=== PATIENT | female | born 1990 | race Caucasian/White ===

== ENCOUNTER → 2016-10-18 | Outpatient (REF) | payer OTHER | LOC: M LAB REF 13:04 | PROVIDERS: ATTEND Obstetrics & Gynecology | DX: Z34.83 Encounter for supervision of other normal pregnancy, third trimester (principal) ==

== ENCOUNTER 2016-11-10 11:02 | Inpatient (IN) | payer OTHER ==
[2016-11-10] VITALS (22 sets, daily range): BP systolic 68–138; BP diastolic 47–82
[~2016-11-10] VITALS: Ht 154.9 cm; Wt 68.6 kg
[2016-11-10] MEDS ORDERED: LR 1,000 ML IV SCH (11:11)
[2016-11-10] MEDS ORDERED: FOLI800C PO (11:15)
[2016-11-10] MEDS ORDERED: PRENTAB9 PO (11:15)
[2016-11-10] MEDS ORDERED: OXYTOCIN DRIP 30 UNITS in APPROPRIATE DILUENT 1 EA IV SCH ×2 (11:15→18:00)
[2016-11-10] MEDS ORDERED: ZYRT10CA PO (11:15)
[2016-11-10] MEDS ORDERED: SING5CHW23 PO (11:34)
[2016-11-10] MEDS ORDERED: LAMO100T PO (11:34)
[2016-11-10 12:17] LABS: MEAN CORPUSCULAR HEMOGLOBIN 29.5 pg (27.0-33.0); MEAN CORPUSCULAR HGB CONC 33.5 g/dl (32.0-36.5); MEAN CORPUSCULAR VOLUME 88.1 fl (80.0-96.0); RED CELL DISTRIBUTION WIDTH 13.3 % (11.5-14.5); WHITE BLOOD COUNT 11.6 K/mm3 (4.0-10.0)
--- NOTE | 2016-11-10 13:38 | HPE ---
DATE OF ADMISSION: 11/10/2016 Geoffrey is a 26-year-old 2, para 1-0-0-1. She is at 38 and 6/7s weeks gestation with an EDC of 11/18/2016 based on first trimester ultrasound. She presents to labor and delivery today after evaluation in the office for complaint of spontaneous rupture of membranes at approximately 0730. She does describe the fluid as clear and nonodorous and did start carlos at approximately 10:15. She has continued to leak fluid. The fetus has been active. care initiated at [facility] as a transfer in from [facility] at 22 weeks gestation. Her course has been complicated by a persistent pericardial effusion. She was seen at the center and noted to have no structural heart anomalies. No evidence of hydrops. The plan is for pediatrics to be notified upon labor admission for this. The patient also has a history of an arteriovenous malformation (AVM) diagnosed in 2012, status post neural surgery. She was seen by neural surgery and they did recommend a spontaneous vaginal delivery for her mode of delivery. She has epilepsy with her most recent seizure being at 8 weeks gestation in this and she does take Lamictal 50 mg daily. She is well controlled with Lamictal. She does have a history of nephrolithiasis as well. OB HISTORY: In January of 2012 at 41 weeks gestation, she had a spontaneous vaginal delivery for a 7 pound male. OB LABS: O negative, antibody screen negative, pap normal, varicella reactive, rubella immune, VDRL non-reactive, urine culture no growth, HBsAG negative, HIV negative Hep C antibody non-reactive,GC/CT negative, GDS 84, GBS negaitve. PAST MEDICAL HISTORY: Epilepsy. Stroke. Arteriovenous malformation. Depression. Childhood varicella. Allergies. PAST SURGICAL HISTORY: Mirena surgically removed in October of 2015. Brain surgery 2012. Kidney stone removal 2011. FAMILY HISTORY: Noncontributory. 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 She was a prior smoker and quit with her . Denies alcohol use. Remote history of illicit drug use including cocaine, Ecstasy and marijuana as a teen. She has a history of Chlamydia in 2014 and she does deny history of abuse, physical sexual and emotional. ALLERGIES: No known drug allergies. CURRENT MEDICATIONS: - Lamictal 50 mg - Zyrtec 10 mg - Folic acid 0.4 mg - Singular 10 mg OBJECTIVE: Temperature 198, pulse 104, respirations 15, blood pressure 121/74. heart rate is 140 with moderate variability, positive accelerations, no decelerations. She is carlos moderately about every 2 to 4 minutes. Her abdomen is gravid. Cephalic presentation. Estimated weight at approximately 7-1/2 pounds. Assessment performed in the office was grossly ruptured, positive Nitrazine, positive ferning, clear fluid. Sterile vaginal exam: 2 cm dilated. 75% effaced. -3 station. ASSESSMENT: Intrauterine at 38 and 6/7s week gestation. heart rate category 1, premature rupture of membranes. PLAN: Per consult with Dr. Flip Rashid, admit patient to labor and delivery. Augment her labor with IV Pitocin. Encourage passive descent as the patient does desire an epidural when she is in active labor. Labs. Out of ad. Susana. Clear liquid diet. I do anticipate labor and a spontaneous vaginal delivery. MTDD
[2016-11-10] MEDS ORDERED: FENTANYL 2MCG/ML ROPIVACAINE 0.2% NACL 250 ML CADD As Ordered ONE (14:57)
[2016-11-10] MEDS ORDERED: NALOXONE INJ 0.4 MG/1 ML VIAL (J2310) IV PRN (16:30)
[2016-11-10] MEDS ORDERED: ONDANSETRON 4MG/2ML VIAL (J2405) IV PRN (16:30)
[2016-11-10] MEDS ORDERED: diphenhydrAMINE INJ 50MG/ML VIAL (J1200) IV PRN (16:30)
[2016-11-10] MEDS ORDERED: FENTANYL/ROPIVACAINE/NACL CADD 250 ML EPIDURAL SCH (16:30)
[2016-11-10] MEDS ORDERED: REFRIGERATOR IV KEYS XX PRN (16:30)
[2016-11-10] MEDS ORDERED: ePHEDrine SULFATE 25 MG/5 ML(5MG/ML) SYRINGE IV PRN (16:30)
[2016-11-10] MEDS ORDERED: EPIDURAL COMMENT XX SCH (16:30)
[2016-11-10] MEDS ORDERED: EPIDURAL/PCA KEYS XX PRN (16:30)
[2016-11-10] MEDS ORDERED: LACTATED RINGER'S 1000 ML IV PRN (16:30)
[2016-11-10] MEDS ORDERED: DOCUSATE SODIUM 100 MG CAP PO PRN (18:00)
[2016-11-10] MEDS ORDERED: METHYLERGONOVINE MALEATE 0.2 MG TAB PO PRN (18:00)
[2016-11-10] MEDS ORDERED: RHOGAM 300 MCG (1500 IU) INJ (J2790) IM SCH (18:00)
[2016-11-10] MEDS ORDERED: DIBUCAINE 1% OINTMENT 30GM TOP PRN (18:00)
[2016-11-10] MEDS ORDERED: MEASLES,MUMPS,RUBELLA VACCINE INJ (MMR-II) (90707) SC SCH (18:00)
[2016-11-10] MEDS ORDERED: IBUPROFEN 800 MG TAB PO PRN (18:00)
--- NOTE | 2016-11-10 18:06 | DN ---
DATE: 11/10/2016 Fiona is a 26-year-old 2, para 2-0-0-2 now who was admitted to labor and delivery with spontaneous rupture of membranes. IV Pitocin was started and labor did ensue. She did utilize an epidural for her labor coping. She progressed to full dilation at 1727 hours. She pushed to a normal spontaneous vaginal delivery of a live female infant in occiput anterior (OA) position with restitution to left occiput transverse (LOT) position at 1734 hours. There was no nuchal cord. The shoulders delivered spontaneously and the corpus immediately followed. The was placed on maternal abdomen, crying and active. Her mouth and nares were bulb suctioned. The cord was clamped times two once pulsations ceased and was cut by the father of the baby. A spontaneous expulsion of an intact placenta with three-vessel cord by Gabriel mechanism was at 1740 hours. Uterine hemostasis achieved with IV Pitocin rapid infusion and uterine fundal massage. Estimated blood loss 300 mL. Perineum and vagina inspected, noted to have bilateral periurethral lacerations. One interrupted suture was placed in the right periurethral laceration. [place] female weighed 7 pounds 14 ounces, 3580 grams, scores 9 and 9. Mom plans to breastfeed her daughter and the family have named her Amarilys. At the close of delivery, instrument count, lap count and needle count were correct and verified.
[2016-11-11] MEDS: ACETAMINOPHEN 500 MG TAB PO PRN ×2 (05:47→19:42)
[2016-11-11 06:03] VITALS: BP 137/94
[2016-11-11] MEDS: PRENATAL VITAMIN TAB PO SCH (08:10)
[2016-11-11 18:08] VITALS: BP 131/82
[2016-11-12] MEDS: ACETAMINOPHEN 500 MG TAB PO PRN (04:03)
[2016-11-12 06:21] VITALS: BP 132/83
[2016-11-12] MEDS ORDERED: ADACEL/BOOSTRIX VACCINE (DIPHTH/PERTUSS/ACELL/TETANUS)0.5ML SYR (90715) IM ONE (09:00)
[2016-11-12] MEDS ORDERED: IBUP-1114 PO (09:01)
[2016-11-12] MEDS ORDERED: ACET50TA PO (09:01)
[2016-11-12] MEDS: PRENATAL VITAMIN TAB PO SCH (09:22)
== END 2016-11-12 10:45 | disposition home or self-care (01) | DRG 775 ==
LOC: M LDI 11:02 → M OBS 20:22
PROVIDERS: ADMIT Advanced Practice Midwife; ATTEND Advanced Practice Midwife
PROC: 10E0XZZ Delivery of Products of Conception, External Approach (ICD-10-PCS; principal; 2016-11-10)
PROC: 0HQ9XZZ Repair Perineum Skin, External Approach (ICD-10-PCS; 2016-11-10)
DX: O42.02 Full-term premature rupture of membranes, onset of labor within 24 hours of rupture (principal); O99.354 Diseases of the nervous system complicating childbirth; Z37.0 Single live birth; Z3A.38 38 weeks gestation of pregnancy; G40.909 Epilepsy, unspecified, not intractable, without status epilepticus; O70.0 First degree perineal laceration during delivery

== ENCOUNTER → 2018-01-18 | Outpatient (REF) | payer OTHER ==
[2018-01-18 23:29] LABS: CHLAMYDIA DNA AMPLIFICATION NEGATIVE (NEGATIVE); GC DNA AMPLIFICATION NEGATIVE (NEGATIVE)
== END ==
LOC: M SFHCLERA 17:20
DX: R30.0 Dysuria (principal)

== ENCOUNTER 2018-01-22 14:27 | Observation (INO) | payer OTHER ==
[2018-01-22 15:04] LABS: BEDSIDE GLUCOSE 109 MG/DL (70-105)
[2018-01-22 15:27] LABS: BASO % 0.4 % (0.0-1.0); EOS # 0.2 10^3/uL (0.0-0.50); EOS % 1.5 % (0.0-3.0); HEMATOCRIT 40.1 % (36.0-47.0); HEMOGLOBIN 13.6 g/dl (12.0-15.5); IMMATURE GRANULOCYTE % 0.3 % (0-3.0); LYMPH # 2.5 10^3/uL (1.5-6.5); LYMPH % 24.8 % (24.0-44.0); MEAN CORPUSCULAR HEMOGLOBIN 29.6 pg (27.0-33.0); MEAN CORPUSCULAR HGB CONC 33.9 g/dl (32.0-36.5); MEAN CORPUSCULAR VOLUME 87.4 fl (80.0-96.0); MONO # 0.7 10^3/uL (0.0-0.8); MONO % 6.7 % (0.0-5.0); NEUTROPHILS # 6.7 10^3/uL (1.8-7.7); NEUTROPHILS % 66.3 % (36.0-66.0); PLATELET COUNT, AUTOMATED 227 10^3/uL (150-450); RED BLOOD COUNT 4.59 10^6/uL (4.00-5.40); RED CELL DISTRIBUTION WIDTH 12.1 % (11.5-14.5); WHITE BLOOD COUNT 10.2 10^3/uL (4.0-10.0)
[2018-01-22 15:28] LABS: VENOUS BASE EXCESS -1.5 (-2.0-2.0); VENOUS HCO3 24.6 MEQ/L (23.0-27.0); VENOUS O2 SATURATION 86.5 % (60.0-80.0); VENOUS PARTIAL PRESSURE CO2 46.5 mmHg (38.0-50.0); VENOUS PARTIAL PRESSURE O2 52.7 mmHg (30.0-50.0); VENOUS PH 7.341 UNITS (7.330-7.430)
[2018-01-22 15:43] LABS: CONTROL LINE HCG INT CTR LINE PRESENT; HCG, SERUM QUALITATIVE NEGATIVE (NEGATIVE)
[2018-01-22 15:45] LABS: OSMOLALITY SERUM 290 MOSM/KG (275-295)
[2018-01-22 16:05] LABS: ACETAMINOPHEN LEVEL < 2.0 UG/ML (10.0-30.0); ALBUMIN/GLOBULIN RATIO 1.21 (1.00-1.93); ALKALINE PHOSPHATASE 74 U/L (45-117); ALT/SGPT 29 U/L (12-78); ANION GAP 7 MEQ/L (8-16); AST/SGOT 16 U/L (7-37); BILIRUBIN,DIRECT < 0.1 MG/DL (0.0-0.2); BILIRUBIN,TOTAL 0.3 MG/DL (0.2-1.0); BLOOD UREA NITROGEN 13 MG/DL (7-18); CALCIUM LEVEL 8.4 MG/DL (8.5-10.1); CARBON DIOXIDE LEVEL 27 MEQ/L (21-32); CHLORIDE LEVEL 108 MEQ/L (98-107); CPK CREATINE PHOSPHOKINASE 133 U/L (26-192); CREATININE FOR GFR 0.64 MG/DL (0.55-1.30); ETHYL ALCOHOL (ETHANOL) < 0.003 % (0.000-0.010); GLOMERULAR FILTRATION RATE > 60.0 (>60); GLUCOSE, FASTING 93 MG/DL (70-100); POTASSIUM SERUM 3.6 MEQ/L (3.5-5.1); SALICYLATE LEVEL < 1.7 MG/DL (5.0-30.0); SODIUM LEVEL 142 MEQ/L (136-145); TOTAL PROTEIN 7.3 GM/DL (6.4-8.2)
[2018-01-22] MEDS: LORazepam 2 MG/ML VIAL (J2060) IV ×2 (16:22)
[2018-01-22] MEDS ORDERED: LORazepam 2 MG/ML VIAL (J2060) IV ×2 (21:30)
[2018-01-22] MEDS: lamoTRIgine 25 MG TAB PO ×2 (22:07)
[2018-01-23] MEDS: ACETAMINOPHEN TAB 650MG DOSE (2X325MG) PO ×4 (06:45→17:00)
[2018-01-23] MEDS: HEPARIN SOD (PORCINE) 5000 UNITS/ML VIAL SC ×6 (06:45→20:03)
[2018-01-23 06:53] LABS: HEMOGLOBIN 13.5 g/dl (12.0-15.5); MEAN CORPUSCULAR HEMOGLOBIN 29.5 pg (27.0-33.0); MEAN CORPUSCULAR HGB CONC 33.8 g/dl (32.0-36.5); MEAN CORPUSCULAR VOLUME 87.3 fl (80.0-96.0); PLATELET COUNT, AUTOMATED 226 10^3/uL (150-450); RED BLOOD COUNT 4.58 10^6/uL (4.00-5.40); RED CELL DISTRIBUTION WIDTH 12.3 % (11.5-14.5); WHITE BLOOD COUNT 7.8 10^3/uL (4.0-10.0)
[2018-01-23 07:09] LABS: ANION GAP 2 MEQ/L (8-16); BLOOD UREA NITROGEN 15 MG/DL (7-18); CALCIUM LEVEL 8.5 MG/DL (8.5-10.1); CARBON DIOXIDE LEVEL 28 MEQ/L (21-32); CHLORIDE LEVEL 113 MEQ/L (98-107); CREATININE FOR GFR 0.72 MG/DL (0.55-1.30); GLOMERULAR FILTRATION RATE > 60.0 (>60); GLUCOSE, FASTING 89 MG/DL (70-100); POTASSIUM SERUM 3.9 MEQ/L (3.5-5.1); SODIUM LEVEL 143 MEQ/L (136-145)
[2018-01-23] MEDS: lamoTRIgine 25 MG TAB PO ×2 (07:42)
[2018-01-23] MEDS: ONDANSETRON 4MG/2ML VIAL (J2405) IV ×2 (12:38)
[2018-01-23] MEDS: KETOROLAC 30 MG/ML VIAL (J1885) IV ×2 (12:39)
[2018-01-23] MEDS: AMITRIPTYLINE 10 MG TAB PO ×2 (19:59)
[2018-01-23] MEDS: lamoTRIgine 100MG TAB PO ×2 (20:00)
[2018-01-24] MEDS: HEPARIN SOD (PORCINE) 5000 UNITS/ML VIAL SC ×2 (05:47)
[2018-01-24 07:30] LABS: HEMATOCRIT 38.4 % (36.0-47.0); HEMOGLOBIN 12.6 g/dl (12.0-15.5); MEAN CORPUSCULAR HEMOGLOBIN 29.7 pg (27.0-33.0); MEAN CORPUSCULAR HGB CONC 32.8 g/dl (32.0-36.5); MEAN CORPUSCULAR VOLUME 90.6 fl (80.0-96.0); PLATELET COUNT, AUTOMATED 194 10^3/uL (150-450); RED BLOOD COUNT 4.24 10^6/uL (4.00-5.40); RED CELL DISTRIBUTION WIDTH 12.4 % (11.5-14.5); WHITE BLOOD COUNT 7.6 10^3/uL (4.0-10.0)
[2018-01-24 07:55] LABS: ANION GAP 6 MEQ/L (8-16); BLOOD UREA NITROGEN 13 MG/DL (7-18); CALCIUM LEVEL 8.2 MG/DL (8.5-10.1); CARBON DIOXIDE LEVEL 26 MEQ/L (21-32); CHLORIDE LEVEL 113 MEQ/L (98-107); CREATININE FOR GFR 0.87 MG/DL (0.55-1.30); GLOMERULAR FILTRATION RATE > 60.0 (>60); GLUCOSE, FASTING 84 MG/DL (70-100); POTASSIUM SERUM 4.1 MEQ/L (3.5-5.1); SODIUM LEVEL 145 MEQ/L (136-145)
[2018-01-24] MEDS: lamoTRIgine 100MG TAB PO ×2 (08:27)
[2018-01-24] MEDS ORDERED: lamoTRIgine 25 MG TAB PO ×2 (09:00)
[2018-01-24] MEDS: CALCIUM GLUCONATE 1,000 MG in D5W MINI-BAG PLUS 100 ML IV (09:20)
[2018-01-24] MEDS: KETOROLAC 30 MG/ML VIAL (J1885) IV ×2 (10:23)
[2018-01-25 14:19] LABS: LAMOTRIGINE (LAMICTAL) None Detected ug/mL (2.0-20.0)
== END 2018-01-24 11:15 | disposition home or self-care (01) ==
LOC: M PED 01-23 09:15 → M ED 14:27 → M ED INP 20:29
DX: G40.309 Generalized idiopathic epilepsy and epileptic syndromes, not intractable, without status epilepticus (principal); Z86.79 Personal history of other diseases of the circulatory system; Z91.19 Patient's noncompliance with other medical treatment and regimen; R41.82 Altered mental status, unspecified; G43.719 Chronic migraine without aura, intractable, without status migrainosus; G44.229 Chronic tension-type headache, not intractable; G47.00 Insomnia, unspecified; F41.9 Anxiety disorder, unspecified; F32.9 Major depressive disorder, single episode, unspecified; Z86.73 Personal history of transient ischemic attack (TIA), and cerebral infarction without residual deficits; G93.41 Metabolic encephalopathy; R20.0 Anesthesia of skin; Z86.19 Personal history of other infectious and parasitic diseases; Z79.899 Other long term (current) drug therapy; Z88.8 Allergy status to other drugs, medicaments and biological substances
CPT/HCPCS: J2405

== ENCOUNTER → 2018-02-07 | Outpatient (REF) | payer OTHER ==
[2018-02-07 12:55] LABS: BASO % 0.4 % (0.0-1.0); EOS # 0.1 10^3/uL (0.0-0.50); EOS % 1.6 % (0.0-3.0); HEMATOCRIT 41.4 % (36.0-47.0); IMMATURE GRANULOCYTE % 0.3 % (0-3.0); LYMPH # 2.1 10^3/uL (1.5-6.5); LYMPH % 30.1 % (24.0-44.0); MEAN CORPUSCULAR HEMOGLOBIN 29.7 pg (27.0-33.0); MEAN CORPUSCULAR HGB CONC 33.8 g/dl (32.0-36.5); MEAN CORPUSCULAR VOLUME 87.9 fl (80.0-96.0); MONO # 0.5 10^3/uL (0.0-0.8); MONO % 7.7 % (0.0-5.0); NEUTROPHILS # 4.1 10^3/uL (1.8-7.7); NEUTROPHILS % 59.9 % (36.0-66.0); PLATELET COUNT, AUTOMATED 208 10^3/uL (150-450); RED BLOOD COUNT 4.71 10^6/uL (4.00-5.40); RED CELL DISTRIBUTION WIDTH 11.9 % (11.5-14.5); WHITE BLOOD COUNT 6.9 10^3/uL (4.0-10.0)
[2018-02-07 13:43] LABS: ALBUMIN 4.1 GM/DL (3.2-5.2); ALBUMIN/GLOBULIN RATIO 1.14 (1.00-1.93); ALKALINE PHOSPHATASE 77 U/L (45-117); ALT/SGPT 23 U/L (12-78); ANION GAP 10 MEQ/L (8-16); AST/SGOT 15 U/L (7-37); BILIRUBIN,TOTAL 0.4 MG/DL (0.2-1.0); BLOOD UREA NITROGEN 16 MG/DL (7-18); CALCIUM LEVEL 8.7 MG/DL (8.5-10.1); CARBON DIOXIDE LEVEL 25 MEQ/L (21-32); CHLORIDE LEVEL 104 MEQ/L (98-107); GLOMERULAR FILTRATION RATE > 60.0 (>60); GLUCOSE, FASTING 79 MG/DL (70-100); POTASSIUM SERUM 3.8 MEQ/L (3.5-5.1); RHEUMATOID FACTOR QUANT < 10.0 IU/ML (<15.0); SODIUM LEVEL 139 MEQ/L (136-145); THYROID STIMULATING HORMONE 0.824 uIU/ML (0.358-3.740); TOTAL PROTEIN 7.7 GM/DL (6.4-8.2)
[2018-02-07 14:03] LABS: ERYTHROCYTE SEDIMENTATION RATE 8 mm/hr (0-20)
[2018-02-09 10:15] LABS: ANTINUCLEAR ANTIBODIES DIRECT Negative (Negative)
[2018-02-09 10:15] LABS: LAMOTRIGINE (LAMICTAL) 5.5 ug/mL (2.0-20.0)
== END ==
LOC: M LABNEURO 11:15
DX: R56.9 Unspecified convulsions (principal); R51 Headache
CPT/HCPCS: 84443

== ENCOUNTER 2018-05-15 08:16 | Day surgery (SDC) | payer OTHER ==
[~2018-05-15 08:16] MED LIST: GLYCOPYRROLATE INJ 0.2 MG/ML 2 ML VIAL As Ordered; HYDROmorphone HCL 2 MG/ML 1ML VIAL (J1170) As Ordered; KETOROLAC 60 MG/2 ML VIAL (J1885) As Ordered; LIDOCAINE 2% INJ 100 MG/5 ML SDV (FOR ANES.) As Ordered; MIDAZOLAM INJ 2 MG/2 ML VIAL (J2250) As Ordered; NEOSTIGMINE 10 MG/10 ML VIAL (J2710) As Ordered; ONDANSETRON 4MG/2ML VIAL (J2405) As Ordered; PROPOFOL 200 MG/20 ML VIAL As Ordered; ROCURONIUM BROMIDE 50 MG/5 ML VIAL As Ordered; dexameTHASONE 4 MG/ML 1ML VIAL (J1100) As Ordered; fentaNYL 100 MCG/2 ML INJECTION (J3010) As Ordered
[2018-05-15 08:47] LABS: HEMOGLOBIN 13.4 g/dl (12.0-15.5); MEAN CORPUSCULAR HEMOGLOBIN 29.6 pg (27.0-33.0); MEAN CORPUSCULAR HGB CONC 34.4 g/dl (32.0-36.5); MEAN CORPUSCULAR VOLUME 86.1 fl (80.0-96.0); PLATELET COUNT, AUTOMATED 206 10^3/uL (150-450); RED BLOOD COUNT 4.53 10^6/uL (4.00-5.40); RED CELL DISTRIBUTION WIDTH 12.2 % (11.5-14.5); WHITE BLOOD COUNT 7.2 10^3/uL (4.0-10.0)
[2018-05-15] MEDS: LR 1,000 ML IV ×4 (08:52→10:47)
[2018-05-15] MEDS ORDERED: SEVOFLURANE INHAL SOLN 250 ML BTL As Ordered ×2 (08:56)
[2018-05-15 09:19] LABS: ANION GAP 7 MEQ/L (8-16); BLOOD UREA NITROGEN 11 MG/DL (7-18); CALCIUM LEVEL 8.3 MG/DL (8.5-10.1); CARBON DIOXIDE LEVEL 25 MEQ/L (21-32); CHLORIDE LEVEL 109 MEQ/L (98-107); CREATININE FOR GFR 0.71 MG/DL (0.55-1.30); GLOMERULAR FILTRATION RATE > 60.0 (>60); GLUCOSE, FASTING 80 MG/DL (70-100); HCG, SERUM QUANTITATIVE < 1.0 MIU/ML; SODIUM LEVEL 141 MEQ/L (136-145)
[2018-05-15] MEDS: BUPIVACAINE HCL 0.5% 30 ML VIAL As Ordered ×2 (10:00)
[2018-05-15] MEDS ORDERED: ePHEDrine SULFATE 25 MG/5 ML(5MG/ML) SYRINGE As Ordered ×2 (10:06)
[2018-05-15] MEDS: ACETAMINOPHEN 650 MG SUPP As Ordered ×2 (10:15)
[2018-05-15] MEDS ORDERED: METOCLOPRAMIDE INJ 10MG/2ML VIAL (J2765) As Ordered ×2 (10:21)
[2018-05-15] MEDS: ONDANSETRON 4MG/2ML VIAL (J2405) IV ×2 (11:15)
[2018-05-15] MEDS: PERCOCET 5MG/325MG TAB PO ×2 (11:15)
[2018-05-15] MEDS: fentaNYL 100 MCG/2 ML INJECTION (J3010) IV ×8 (11:15→11:30)
== END 2018-05-15 13:50 | disposition home or self-care (01) ==
LOC: M SDC 08:16
DX: Z30.2 Encounter for sterilization (principal); F41.9 Anxiety disorder, unspecified; F32.9 Major depressive disorder, single episode, unspecified; Z86.73 Personal history of transient ischemic attack (TIA), and cerebral infarction without residual deficits; Z79.899 Other long term (current) drug therapy
CPT/HCPCS: 58671

== ENCOUNTER → 2018-06-25 | Outpatient (REF) | payer OTHER | LOC: M SFHCLERA 13:35 | DX: R53.81 Other malaise (principal) ==

== ENCOUNTER 2018-10-04 10:54 | Observation (INO) | payer OTHER ==
[~2018-10-04] VITALS: Ht 154.9 cm; Wt 54.4 kg
[~2018-10-04 10:54] MED LIST changes: +AMIT10TA PO; +CLAR10CA3 PO; +FISH1000 PO; +FLON1SPR; +FOLI800C PO; -GLYCOPYRROLATE INJ 0.2 MG/ML 2 ML VIAL As Ordered; -HYDROmorphone HCL 2 MG/ML 1ML VIAL (J1170) As Ordered; +IBUP-1114 PO; -KETOROLAC 60 MG/2 ML VIAL (J1885) As Ordered; +LAMO100T PO; +LAMO10TA PO; -LIDOCAINE 2% INJ 100 MG/5 ML SDV (FOR ANES.) As Ordered; +MAPA500T17 PO; -MIDAZOLAM INJ 2 MG/2 ML VIAL (J2250) As Ordered; -NEOSTIGMINE 10 MG/10 ML VIAL (J2710) As Ordered; -ONDANSETRON 4MG/2ML VIAL (J2405) As Ordered; +PRENTAB9 PO; -PROPOFOL 200 MG/20 ML VIAL As Ordered; -ROCURONIUM BROMIDE 50 MG/5 ML VIAL As Ordered; +SING10TA32 PO; +SING5CHW23 PO; +TURM500T PO; +ZYRT10CA PO; -dexameTHASONE 4 MG/ML 1ML VIAL (J1100) As Ordered; -fentaNYL 100 MCG/2 ML INJECTION (J3010) As Ordered
[2018-10-04 11:23] LABS: BASO % 0.2 % (0.0-1.0); EOS % 0.4 % (0.0-3.0); HEMOGLOBIN 14.3 g/dl (12.0-15.5); MEAN CORPUSCULAR HEMOGLOBIN 30.5 pg (27.0-33.0); MEAN CORPUSCULAR VOLUME 89.6 fl (80.0-96.0); MONO # 0.6 10^3/uL (0.0-0.8); MONO % 12.4 % (0.0-5.0); NEUTROPHILS % 64.8 % (36.0-66.0); PLATELET COUNT, AUTOMATED 171 10^3/uL (150-450); RED BLOOD COUNT 4.69 10^6/uL (4.00-5.40); WHITE BLOOD COUNT 4.6 10^3/uL (4.0-10.0)
[2018-10-04 11:38] LABS: HCG, SERUM QUALITATIVE NEGATIVE (NEGATIVE)
[2018-10-04] MEDS ORDERED: levETIRAcetam INJection 500 MG in D5W MINI-BAG PLUS 100 ML IV ONE ×2 (12:00→18:15)
[2018-10-04 12:04] LABS: ALBUMIN 3.9 GM/DL (3.2-5.2); ALT/SGPT 28 U/L (12-78); BILIRUBIN,DIRECT 0.1 MG/DL (0.0-0.2); BILIRUBIN,TOTAL 0.3 MG/DL (0.2-1.0); BLOOD UREA NITROGEN 9 MG/DL (7-18); CALCIUM LEVEL 8.3 MG/DL (8.5-10.1); CARBON DIOXIDE LEVEL 26 MEQ/L (21-32); CHLORIDE LEVEL 105 MEQ/L (98-107); CREATININE FOR GFR 0.62 MG/DL (0.55-1.30); GLOMERULAR FILTRATION RATE > 60.0 (>60); GLUCOSE, FASTING 93 MG/DL (70-100); LIPASE 91 U/L (73-393); POTASSIUM SERUM 3.8 MEQ/L (3.5-5.1); SODIUM LEVEL 139 MEQ/L (136-145); TOTAL PROTEIN 7.1 GM/DL (6.4-8.2)
[2018-10-04 12:10] LABS: INFLUENZA A AMPLIFICATION POSITIVE (NEGATIVE); INFLUENZA B AMPLIFICATION NEGATIVE (NEGATIVE)
--- NOTE | 2018-10-04 12:14 | REP ---
Portable chest x-ray: Single view. History: Cough. Comparison study: January 15, 2011. Findings: EKG monitoring electrodes overlie the chest. Lungs are well inflated and clear. Heart size is normal. Pulmonary vasculature is not increased. Pleural angles are sharp. Impression: Negative portable chest x-ray. Electronically Signed by Kan Kurtz MD 10/04/2018 12:05 P
--- NOTE | 2018-10-04 12:20 | REP ---
Clinical: Trauma. Comparison: 01/22/2018 and show . Findings: Right-sided craniotomy and postsurgical changes are again identified and stable. The ventricles, sulci, and cisterns are normal in position and appearance. Guillaume-white differentiation is maintained. No acute intracranial hemorrhage, mass/mass effect, acute pathology or trauma/injury. No evidence for acute infarction. No extra-axial fluid collection. Impression: Stable postsurgical changes involving the right hemisphere. No evidence for acute intracranial pathology or trauma/injury. Electronically Signed by Bc June MD 10/04/2018 12:11 P
--- NOTE | 2018-10-04 12:21 | REP ---
Clinical: Trauma with left-sided weakness . Technique: Axial noncontrast images from the skull base to the thoracic inlet with coronal and sagittal re-formations Findings: Normal alignment is maintained. Cervical vertebral bodies including transverse processes and spinous processes are intact and there is no evidence for acute fracture / compression injury or subluxation. Spinal canal is patent. Posterior elements are intact. Paravertebral soft tissues are normal. Impression: No evidence for acute pathology or trauma/injury. Electronically Signed by Bc June MD 10/04/2018 12:12 P
[2018-10-04] MEDS ORDERED: LORazepam 2 MG/ML VIAL (J2060) As Ordered ONE (12:33)
[2018-10-04] MEDS ORDERED: NS 1,000 ML IV ONE (12:45)
[2018-10-04] MEDS ORDERED: LORazepam 2 MG/ML VIAL (J2060) IV STA (12:49)
[2018-10-04] MEDS ORDERED: OSELTAMIVIR PHOSPHATE 75 MG CAP (TAMIFLU) PO ONE (13:30)
[2018-10-04 13:55] LABS: CPK CREATINE PHOSPHOKINASE 148 U/L (26-192)
[2018-10-04] MEDS ORDERED: VITMTA PO (14:02)
[2018-10-04] MEDS ORDERED: FLUTICASONE PROP 0.05% NASAL SPRAY 16 GM (FLONASE) PRN (14:15)
--- NOTE | 2018-10-04 15:06 | HPE ---
DATE OF ADMISSION: 10/04/2018 This is a 28-year-old female with a past medical history of depression, history of arteriovenous malformation with repair in [place] with subsequent generalized seizures who presents to the emergency room after having seizure activity at work. It was noted generalized tonic/clonic. It subsided by the time emergency medical services (EMS) came, but then she had another episode with EMS and was given 5 of Versed, which resolved. When she was in the emergency room (ER), she was given 500 of Keppra intravenous (IV), and after that she seized again, and the seizure stopped after 1 mg of Ativan. Patient at this time is not postictal. She was able to give a coherent, good history. Apparently she stopped the Lamictal a couple weeks ago when she ran out, and she does not want to be with Dr. Richards's group anymore and has been waiting for Nish togive her a new referral for a different neurologist, so basically she has not been taking her medication for about 4 weeks. Another reason she does not want to take the Lamictal is due some of side effects that she encountered. She used to be on Keppra prior to her , which was then switched to Lamictal and was never switched back to Keppra. She apparently did very well with that. She will be admitted for further management. PAST MEDICAL HISTORY: 1. Arteriovenous malformation, status post repair by neurosurgery in [place] with subsequent generalized tonic/conic seizure afterward. 2. History of medical noncompliance. 3. Depression. DRUG ALLERGIES: PREDNISONE. FAMILY HISTORY: Negative for seizure activity. SOCIAL HISTORY: Patient denies tobacco, alcohol, or illicit drugs. HOME MEDICATIONS: - fluticasone two sprays each nostril as needed - loratadine 10 mg orally daily - montelukast 10 mg orally daily - multivitamin one tablet orally daily REVIEW OF SYSTEMS: Negative for all 10 major systems except for what is mentioned in history of present illness (HPI). VITAL SIGNS: Blood pressure 101/63, heart rate is 106 and regular, respiratory rate is 18, temperature 96.9, oxygen saturation is 98% on room air. HEAD: Atraumatic, normocephalic. Oral mucosa is intact and no lacerations noted on her tongue. NECK: Supple. No jugular venous distention (JVD). LUNGS: Clear to auscultation. HEART: S1, S2 audible. No murmurs appreciated. ABDOMEN: Soft. Positive bowel sounds. There is no pedal edema. SKIN: Intact. NEUROLOGIC: Patient awake, alert, oriented times three. LABORATORY DATA: WBC 4.6, hemoglobin 14.3, hematocrit 42, platelets are 171,000. Sodium 139, potassium 3.8, chloride 105, CO2 of 26, BUN 9, creatinine 0.62. Creatine kinase 148. Influenza swab positive for influenza A. IMPRESSION: 1. Seizure. 2. Influenza A. PLAN: Patient is to be admitted to the medical/surgical floor. Will monitor her for 24 hours. I am going to increase her Keppra to 1000 intravenous (IV) every 12 with the hope to transition her to 1000 by mouth every 12 and have her discharged to see Dr. Richards's office until she is able to have Nish sort out the neurologic referral. She understood and verbalized and agreed to do this. For her influenza A, will start her on Tamiflu 75 mg by mouth twice a day for 5 days. Will continue her other preadmission medications.
[2018-10-04 16:25] VITALS: BP 124/77
[2018-10-04] MEDS: NS 1,000 ML IV SCH (17:18)
[2018-10-04] MEDS ORDERED: LORazepam 2 MG/ML VIAL (J2060) IV PRN (18:15)
[2018-10-04] MEDS: OMEGA-3 1000MG CAPSULE PO SCH (20:02)
[2018-10-04] MEDS: OSELTAMIVIR PHOSPHATE 75 MG CAP (TAMIFLU) PO SCH (20:02)
[2018-10-04 22:00] VITALS: BP 92/68
[2018-10-04] MEDS ORDERED: levETIRAcetam INJection 1,000 MG in D5W 100 ML IV SCH (23:00)
[2018-10-05] MEDS: NS 1,000 ML IV SCH ×3 (01:00→20:17)
[2018-10-05 06:00] VITALS: BP 111/66
[2018-10-05] MEDS ORDERED: levETIRAcetam INJection 1,000 MG in D5W 100 ML IV SCH (06:00)
[2018-10-05] MEDS: MONTELUKAST 10 MG TAB PO SCH (08:34)
[2018-10-05] MEDS: OMEGA-3 1000MG CAPSULE PO SCH ×2 (08:34→20:18)
[2018-10-05] MEDS: MULTIVITAMINS/MINERALS THERAP 1 TAB PO SCH (08:34)
[2018-10-05] MEDS: OSELTAMIVIR PHOSPHATE 75 MG CAP (TAMIFLU) PO SCH ×2 (08:34→20:18)
[2018-10-05] MEDS: LORATADINE 10 MG TAB PO SCH (08:34)
--- NOTE | 2018-10-05 09:08 | IPN ---
DATE: 10/05/2018 Geoffrey French was a patient on the hospitalist service seen on 5 [address] after being admitted with seizures. History and physical is reviewed. Patient had one seizure after arriving to the floor last night. None since then. She is status post general surgery for arteriovenous malformation (AVM) with subsequent history of generalized seizure disorder. She also is being treated for influenza A. PHYSICAL EXAM: Afebrile. Vital signs stable. She is alert and conversant, in no distress, resting comfortably. Neck: Supple. Lungs: Clear. Heart: Without murmur. Abdomen: Soft. Nontender. No masses. No peripheral edema. Neurologic exam shows cranial nerves II-XII to be intact. Normal strength in arms and legs. Normal sensation. LABS: No lab work was ordered for today. IMPRESSION: 1. Generalized seizure disorder. She is currently on intravenous (IV) Keppra. Change her to some oral Keppra. Use Ativan as needed for breakthrough seizures. Neurology has been consulted. We await there evaluation. 2. Influenza. She is on Tamiflu 75 mg twice a day and flu can lower seizure threshold by not as severely as amantadine.
[2018-10-05] MEDS ORDERED: KETOROLAC TROMETHAMINE 10 MG TAB PO PRN (09:15)
--- NOTE | 2018-10-05 10:57 | ECGEPIP ---
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
[2018-10-05 14:00] VITALS: BP 112/58
[2018-10-05] MEDS: ACETAMINOPHEN 500 MG TAB PO PRN (14:29)
[2018-10-05] MEDS: levETIRAcetam 250MG TABLET (KEPPRA) PO SCH (17:56)
[2018-10-05 22:00] VITALS: BP 107/70
[2018-10-06] MEDS: levETIRAcetam 250MG TABLET (KEPPRA) PO SCH (05:59)
[2018-10-06] MEDS: NS 1,000 ML IV SCH (05:59)
[2018-10-06 06:00] VITALS: BP 104/62
[2018-10-06 06:35] LABS: HEMATOCRIT 38.1 % (36.0-47.0); HEMOGLOBIN 12.6 g/dl (12.0-15.5); MEAN CORPUSCULAR HEMOGLOBIN 30.1 pg (27.0-33.0); MEAN CORPUSCULAR HGB CONC 33.1 g/dl (32.0-36.5); MEAN CORPUSCULAR VOLUME 90.9 fl (80.0-96.0); PLATELET COUNT, AUTOMATED 160 10^3/uL (150-450); RED BLOOD COUNT 4.19 10^6/uL (4.00-5.40); WHITE BLOOD COUNT 5.2 10^3/uL (4.0-10.0)
[2018-10-06 07:03] LABS: ALBUMIN 3.2 GM/DL (3.2-5.2); ALT/SGPT 23 U/L (12-78); BILIRUBIN,TOTAL 0.2 MG/DL (0.2-1.0); BLOOD UREA NITROGEN 7 MG/DL (7-18); CALCIUM LEVEL 8.1 MG/DL (8.5-10.1); CARBON DIOXIDE LEVEL 26 MEQ/L (21-32); CHLORIDE LEVEL 109 MEQ/L (98-107); GLOMERULAR FILTRATION RATE > 60.0 (>60); GLUCOSE, FASTING 88 MG/DL (70-100); POTASSIUM SERUM 3.9 MEQ/L (3.5-5.1); SODIUM LEVEL 142 MEQ/L (136-145); TOTAL PROTEIN 6.7 GM/DL (6.4-8.2)
[2018-10-06] MEDS ORDERED: OSEL75CA2 PO (08:41)
[2018-10-06] MEDS ORDERED: KEPP10002 PO (08:41)
[2018-10-06] MEDS: MONTELUKAST 10 MG TAB PO SCH (08:48)
[2018-10-06] MEDS: OMEGA-3 1000MG CAPSULE PO SCH (08:48)
[2018-10-06] MEDS: LORATADINE 10 MG TAB PO SCH (08:48)
[2018-10-06] MEDS: MULTIVITAMINS/MINERALS THERAP 1 TAB PO SCH (08:48)
[2018-10-06] MEDS: OSELTAMIVIR PHOSPHATE 75 MG CAP (TAMIFLU) PO SCH (08:48)
[2018-10-06] MEDS: ACETAMINOPHEN 500 MG TAB PO PRN (08:51)
--- NOTE | 2018-10-06 08:54 | CR ---
DATE OF CONSULTATION: 10/05/2018 REFERRING PHYSICIAN: Dr. Fox Morris REASON FOR CONSULTATION: Seizures. HISTORY OF PRESENT ILLNESS: Fiona French is a 28-year-old woman with history of depression, history of capital AV malformation on right side of her brain in frontal and central head region which was repaired in [place]. The patient has history of generalized tonic-clonic seizures. The patient has not been compliant with her medications. The patient has been following with Dr. Richards but does not want to follow with the office due to problems with scheduling appointments and that she has to wait too long for the appointment. She has not been taking her medications. She was prescribed Keppra after she had her AVM and firm malformation repaired in [place] by Dr. Licea. She to Keppra for couple of years. She had moved to [place]. Due to her Keppra was changed to lamotrigine. The patient stated that time of admission that she had side effects from Lamictal and that she did not want to take Lamictal. To me she states that she ran out of Lamictal 3-4 weeks ago. She had two suspected seizures in winter 2016-2018. At that time she was not taking her medication either. Yesterday she had possible four seizure-like spells. She was at work. She started feeling twitches of her head and stuttering speech. She sat down and fell to ground and started shaking for 5-6 minutes. The patient states that during shaking she can hear other people. There is no tongue biting or urinary incontinence. She cannot talk during her seizure. She had another episode in the ambulance and one in the emergency department and one when she moved to the floor. The patient states that she was given warfarin and Ativan, so she does not remember the last three episodes. She had no seizures in last 24 hours. She is taking Keppra twice a day. The patient history of chronic headaches. She also has some neck pain sometimes. She also has chronic low back pain. She denies dysphagia, dysarthria, diplopia or urinary incontinence. She the patient stated that she has left-sided numbness and weakness which is a residual from her AVM in frontal and central head region. PAST MEDICAL HISTORY: Right-sided frontal and central capital AV malformation status post surgery, medical noncompliance, depression. CURRENT MEDICATIONS: Prednisone FAMILY HISTORY: Unremarkable for seizure. SOCIAL HISTORY: She denies smoking, alcohol or illicit drugs. MEDICATIONS: Flonase nasal spray and the patient was supposed to be on lamotrigine 100 mg by mouth twice a day but she has not been taking it for last 3-4 weeks. Claritin 10 mg by mouth daily, Singulair 10 mg by mouth daily, multivitamin 1 tablet by mouth, Tamiflu 75 mg by mouth daily. REVIEW OF SYSTEMS: All systems were reviewed and found to be noncontributory except as mentioned history present illness. PHYSICAL EXAMINATION: Temperature 98.7, pulse 80, respiratory 18, blood pressure 112/58, 99% saturation on room air. Heart: Regular rate rhythm. Lungs: Clear to auscultation. Abdomen: Soft, nontender, nondistended. No pedal edema. No musculoskeletal abnormalities or rash. No signs of irritation. No tremor, dysmetria, ataxia. The patient is awake, alert, oriented to place, person and time. Normal speech comprehension and repetition. Extraocular muscles are intact. Uvula are midline. No facial weakness. Recent and distant memory is intact. The visual noble are full to confrontation. Pupils are 6 mm bilaterally reactive to light. Strength on her right-sided is 5/5. Left-sided strength is 5-/5 throughout with intermittent activation. The patient states that she has decreased and altered sensation on the entire left side of her body. Right-sided sensations are normal. Gait is normal. DIAGNOSTIC STUDIES: CT scan of her head showed right frontal and central encephalomalacia due to her right capital AV malformation which was repaired surgically. ASSESSMENT: 1. Possible localization related secondary generalized tonic-clonic seizures. 2. Medical noncompliance. 3. History of right frontal and central capital AV malformation, chronic headaches. 4. Depression. PLAN: 1. The patient prefers to stay on Keppra 1000 mg by mouth twice a day. The patient has history of depression and Keppra sometimes can aggravate depression. Lamictal does not aggravate and sometimes can improve depression. 2. The patient is fully aware of [facility] rules and regulations regarding driving. She is advised not to drive for 6 months at least. 3. The patient wants to find and follow with a neurologist in [place]. She states that she had problems scheduling appointments and had to wait too long at our office in past.
--- NOTE | 2018-10-06 10:13 | DSES ---
DATE OF ADMISSION: 10/04/2018 DATE OF DISCHARGE: 10/06/2018 PRINCIPAL DIAGNOSIS: Repeated seizures. SECONDARY DIAGNOSIS: Influenza A. HISTORY: The patient is a 28-year-old with a history of AV malformation repair with subsequent generalized seizures. She presented to the emergency room with seizure activity and had repeated seizures in the emergency room, was admitted for further therapy. Details of the history and physical as per admission. HOSPITAL COURSE: The patient was admitted to a medical bed. She had one seizure after her history and physical went in, but she had no recurrence after that. Neurology was consulted. Per patient she was seen yesterday and per patient they agreed with the regimen as prescribed, I do not have their note available, transcribed or written (I have a call out to the [employer] database consultant neurologist). The patient had influenza A and was started on Tamiflu and felt better, as far as her flu symptoms. She has migraine headaches and had a recurrence of migraine from all the events that took place, but just took Tylenol for this. Significant laboratories: Electrolytes today are unremarkable. HCG was negative. CBC within normal limits. White count 5.2, hemoglobin 12.6, platelets 160, influenza A screen was positive. CT of the head showed postoperative changes. C-spine films were unremarkable. DISPOSITION: The patient is discharged home in improved and stable condition. She will followup with her primary care provider at [place] in 1 week. Followup with neurology per their office. The patient apparently was in the midst of trying to get her neurologic care transferred to a neurologist in [place], that is being done by her primary care provider and they can continue those efforts if they want. She is not to drive or engage in potentially hazardous activities until cleared by neurology. MEDICATIONS: - Flonase spray two sprays daily as needed - Claritin 10 mg daily - Singulair 10 mg daily for allergies - multivitamin She is on Tamiflu 75 mg twice a day for 3 more days. She will take Keppra 1000 mg twice a day, prescribed enough for 14 days, which should provide her with sufficient medication until she gets in to her primary care provider on [place]. At the time of this dictation, there are no pending laboratories. edited: 10/10/2018 0725 morgan SIERRA
== END 2018-10-06 11:45 | disposition home or self-care (01) ==
LOC: M ED 10:54 → EDBD 10:54 → M ED INP 14:13 → M MS5PR 16:23
PROVIDERS: ADMIT Internal Medicine; ATTEND Hospitalist
DX: R56.9 Unspecified convulsions (principal); J11.1 Influenza due to unidentified influenza virus with other respiratory manifestations; F32.9 Major depressive disorder, single episode, unspecified; Z79.899 Other long term (current) drug therapy
CPT/HCPCS: 70450; 71045; 72125; 80048; 80053; 80076; 82550; 83690; 84703; 85025; 85027; 87502; 93005; 96374; 99285; J1953; J2060

== ENCOUNTER 2019-03-05 20:06 | Emergency (ER) | payer OTHER ==
[~2019-03-05] VITALS: Ht 154.9 cm; Wt 50.0 kg
[~2019-03-05 20:06] MED LIST changes: +KEPP10002 PO; +LAMO100T80 PO; -LAMO10TA PO; -MAPA500T17 PO; +MAPA500T2 PO; +OSEL75CA2 PO; +VITMTA PO
[2019-03-05] MEDS ORDERED: levETIRAcetam INJection 1,000 MG in D5W 100 ML IV ONE (20:30)
[2019-03-05 20:45] LABS: BASO % 0.3 % (0.0-1.0); EOS # 0.1 10^3/uL (0.0-0.50); EOS % 0.8 % (0.0-3.0); HEMATOCRIT 34.7 % (36.0-47.0); HEMOGLOBIN 11.7 g/dl (12.0-15.5); LYMPH # 2.1 10^3/uL (1.5-6.5); LYMPH % 16.2 % (24.0-44.0); MEAN CORPUSCULAR HGB CONC 33.7 g/dl (32.0-36.5); MONO # 0.8 10^3/uL (0.0-0.8); NEUTROPHILS # 9.9 10^3/uL (1.8-7.7); NEUTROPHILS % 76.4 % (36.0-66.0); PLATELET COUNT, AUTOMATED 205 10^3/uL (150-450); WHITE BLOOD COUNT 12.9 10^3/uL (4.0-10.0)
--- NOTE | 2019-03-05 20:49 | REP ---
Clinical: Seizures. Comparison: 10/04/2018 . Findings: Evidence for prior right craniotomy and encephalomalacia in the right frontal lobe appears chronic. The ventricles, sulci, and cisterns are otherwise normal in position and appearance. Guillaume-white differentiation is otherwise maintained. No acute intracranial hemorrhage, mass/mass effect, pathology or trauma/injury. No evidence for acute infarction. No extra-axial fluid collection. Partial opacification of the ethmoid and sphenoid sinuses is nonspecific. Impression: Prior craniotomy and encephalomalacia involving the right frontal lobe. No evidence for acute intracranial pathology or trauma/injury. Electronically Signed by Bc June MD 03/05/2019 08:40 P
[2019-03-05 21:01] LABS: BLOOD UREA NITROGEN 12 MG/DL (7-18); CALCIUM LEVEL 8.4 MG/DL (8.5-10.1); CARBON DIOXIDE LEVEL 28 MEQ/L (21-32); CHLORIDE LEVEL 108 MEQ/L (98-107); CREATININE FOR GFR 0.62 MG/DL (0.55-1.30); ETHYL ALCOHOL (ETHANOL) < 0.003 % (0.000-0.010); GLOMERULAR FILTRATION RATE > 60.0 (>60); GLUCOSE, FASTING 93 MG/DL (70-100); POTASSIUM SERUM 3.5 MEQ/L (3.5-5.1); SODIUM LEVEL 143 MEQ/L (136-145)
[2019-03-05] MEDS ORDERED: KEPP10002 PO (22:46)
[2019-03-05 23:00] VITALS: BP 111/59
== END 2019-03-05 23:26 | disposition home or self-care (01) ==
LOC: M ED 20:06
DX: G40.909 Epilepsy, unspecified, not intractable, without status epilepticus (principal); Z91.19 Patient's noncompliance with other medical treatment and regimen; Z79.899 Other long term (current) drug therapy; Z88.8 Allergy status to other drugs, medicaments and biological substances; Z91.030 Bee allergy status; Z87.891 Personal history of nicotine dependence
CPT/HCPCS: 70450; 80048; 85025; 96365; 96366; 99284; G0480; J1953

== ENCOUNTER → 2019-04-12 | Outpatient (REF) | payer OTHER ==
[2019-04-12 22:21] LABS: CHLAMYDIA DNA AMPLIFICATION NEGATIVE (NEGATIVE); GC DNA AMPLIFICATION NEGATIVE (NEGATIVE)
== END ==
LOC: M SFHCLERA 16:23
PROVIDERS: ATTEND Nurse Practitioner Family
DX: N89.8 Other specified noninflammatory disorders of vagina (principal)
CPT/HCPCS: 81002; 81025; 87070; 87077; 87086; 87661; G0463

== ENCOUNTER → 2019-05-27 | Outpatient (REF) | payer OTHER | LOC: M SFHCLERA 10:05 | PROVIDERS: ATTEND Nurse Practitioner Family | DX: N30.00 Acute cystitis without hematuria (principal) | CPT/HCPCS: 81002; 81025; 87086; G0463 ==

== ENCOUNTER 2020-09-08 12:21 | Emergency (ER) | payer OTHER ==
[~2020-09-08] VITALS: Ht 154.9 cm; Wt 60.4 kg
[~2020-09-08 12:21] MED LIST changes: -LAMO100T PO; +LAMO100T3 PO
[2020-09-08] MEDS ORDERED: TRIL1TAB PO (13:46)
[2020-09-08] MEDS ORDERED: LORazepam 2 MG/ML VIAL As Ordered ONE (14:12)
[2020-09-08] MEDS ORDERED: LORazepam 2 MG/ML VIAL IV STA (14:13)
[2020-09-08 14:19] LABS: BASO % 0.3 % (0.0-1.0); EOS # 0.2 10^3/uL (0.0-0.5); EOS % 1.3 % (0.0-3.0); HEMATOCRIT 39.3 % (36.0-47.0); HEMOGLOBIN 12.9 g/dl (12.0-15.5); LYMPH # 2.3 10^3/uL (1.5-5.0); LYMPH % 19.4 % (24.0-44.0); MEAN CORPUSCULAR HEMOGLOBIN 29.5 pg (27.0-33.0); MEAN CORPUSCULAR HGB CONC 32.8 g/dl (32.0-36.5); MEAN CORPUSCULAR VOLUME 89.7 fl (80.0-96.0); MONO # 0.8 10^3/uL (0.0-0.8); MONO % 6.3 % (0.0-5.0); NEUTROPHILS # 8.6 10^3/uL (1.5-8.5); NEUTROPHILS % 72.4 % (36.0-66.0); PLATELET COUNT, AUTOMATED 234 10^3/uL (150-450); RED BLOOD COUNT 4.38 10^6/uL (4.00-5.40); WHITE BLOOD COUNT 11.9 10^3/uL (4.0-10.0)
[2020-09-08] MEDS ORDERED: NS 1,000 ML IV ONE (14:30)
[2020-09-08] MEDS ORDERED: levETIRAcetam INJection 1,000 MG in D5W 100 ML IV ONE (14:30)
[2020-09-08 14:46] LABS: ALBUMIN 4.4 GM/DL (3.2-5.2); ALT/SGPT 25 U/L (12-78); BILIRUBIN,TOTAL 0.4 MG/DL (0.2-1.0); BLOOD UREA NITROGEN 12 MG/DL (7-18); CALCIUM LEVEL 9.7 MG/DL (8.5-10.1); CARBON DIOXIDE LEVEL 29 MEQ/L (21-32); CHLORIDE LEVEL 105 MEQ/L (98-107); CREATININE FOR GFR 0.68 MG/DL (0.55-1.30); GLOMERULAR FILTRATION RATE > 60.0 (>60); GLUCOSE, FASTING 86 MG/DL (70-100); POTASSIUM SERUM 3.8 MEQ/L (3.5-5.1); SODIUM LEVEL 138 MEQ/L (136-145); TOTAL PROTEIN 7.4 GM/DL (6.4-8.2)
[2020-09-08 14:56] LABS: HCG, SERUM QUALITATIVE NEGATIVE (NEGATIVE)
--- NOTE | 2020-09-08 15:34 | REP ---
INDICATION: seizure. COMPARISON: March 05, 2019.. TECHNIQUE: Helical scanning is acquired. 5 mm axial images were reformatted. Coronal MPR images were generated. 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 The bony calvarium is otherwise intact. There is an old area of encephalomalacia in the right parietal lobe again noted unchanged. There is no evidence of intracranial hemorrhage, new encephalomalacia or infarction, extra-axial fluid collection or midline shift. Guillaume-white differentiation pattern is otherwise intact. IMPRESSION: Old post craniotomy changes right parietal lobe. Old area of stable encephalomalacia and calcification in the right parietal lobe unchanged. No acute intracranial lesion seen.. <Electronically signed by Chapo Kurtz > 09/08/20 [id number]
[2020-09-08] MEDS ORDERED: KEPP1TAB2 PO (18:43)
[2020-09-08 18:45] VITALS: BP 106/59
== END 2020-09-08 19:05 | disposition home or self-care (01) ==
LOC: EDBD 12:21 → M ED 12:21
DX: G40.909 Epilepsy, unspecified, not intractable, without status epilepticus (principal); F32.9 Major depressive disorder, single episode, unspecified; Z79.899 Other long term (current) drug therapy; Z91.030 Bee allergy status; Z88.8 Allergy status to other drugs, medicaments and biological substances
CPT/HCPCS: 70450; 80053; 84703; 85025; 96361; 96365; 96375; 99284; J1953; J2060

== ENCOUNTER → 2020-09-25 | Outpatient (CLI) | payer OTHER ==
[~2020-09-25] MED LIST changes: +KEPP1TAB2 PO; +TRIL1TAB PO
== END ==
LOC: M LABSMTC 14:04
PROVIDERS: ATTEND Student in an Organized Health Care Education/Training Program
DX: Z01.812 Encounter for preprocedural laboratory examination (principal); Q28.2 Arteriovenous malformation of cerebral vessels; Z11.59 Encounter for screening for other viral diseases